=== PATIENT | female | born 1965 | race Caucasian/White ===

== ENCOUNTER 2019-03-06 13:28 | Emergency (ER) | payer OTHER ==
[~2019-03-06] VITALS: Ht 157.5 cm; Wt 81.6 kg
[2019-03-06 13:38] VITALS: Ht 157.5 cm; Wt 81.6 kg
[2019-03-06 19:06] VITALS: BP 114/71
== END 2019-03-06 19:06 | disposition home or self-care (01) ==
LOC: ED 13:28
DX: M54.5 Low back pain (principal); M79.7 Fibromyalgia; M19.90 Unspecified osteoarthritis, unspecified site; Z88.5 Allergy status to narcotic agent; Z88.0 Allergy status to penicillin
CPT/HCPCS: J1885; J3010; Q0162